=== PATIENT | male | born 1970 | race Caucasian/White ===

== ENCOUNTER 2017-03-03 13:34 | Emergency (ER) | payer SELFPAY ==
--- NOTE | 2017-03-03 13:47 | Emergency Department Record ---
History of Present Illness - General Stated Complaint: SEIZURE Time Seen by Provider: 03/03/17 13:38 Source: Patient, EMS - History of Present Illness Initial Comments: Patient confused at the scene and was diaphoretic and had a fever and in route he had a seizure and EMS gave him valium 5 mg IV. Upon arrival he was answering questions and he denied headache or neck pain and he had no nucal signs. No neck pain. Patient stated he ran out of oxycontin 3 days ago and he is not due for his next script of pain medication for [address] is Dr. Cain and his pain Dr. is Dr. Cleary. Patient states he uses oxycontin 60 mg two times a day and oxy ir 10 mg every 6 hours. MD Complaint: Seizure Onset/Timin -: Hour(s) Duration of Episode: 30 -: Second(s) Witnessed: Yes - by bystander, Yes - by EMS, Yes - by other (he had a second seizure in the ED last 20 seconds and given versed 2.5 mg IV) Seizure History: None, Other Possible Precipitating Event: Medication Associated Symptoms: Diaphoresis, Fever/chills - Related Data Home Medications Medication Instructions Recorded Confirmed Last Taken Aripiprazole [Abilify] 04/03/14 04/03/14 04/02/14 Citalopram Hydrobromide 04/03/14 04/03/14 04/02/14 [Citalopram HBr] Esomeprazole Magnesium [Nexium] 04/03/14 04/03/14 04/02/14 Hydrocodone/Acetaminophen 04/03/14 04/03/14 04/02/14 [Hydrocodon-Acetaminophn 10-325] Meloxicam [Meloxicam] 04/03/14 04/03/14 04/02/14 Olmesartan/Amlodipin/Hcthiazid 04/03/14 04/03/14 04/02/14 [Tribenzor 40-5-12.5 mg Tablet] Ranitidine HCl [Zantac] 04/03/14 04/03/14 04/02/14 Venlafaxine HCl [Effexor Xr] 04/03/14 04/03/14 04/02/14 Allergies Allergy/AdvReac Type Severity Reaction Status Date / Time codeine Allergy VOMITING Verified 04/03/14 03:38 poison luzma extract Allergy HIVES Verified 04/03/14 03:38 [Poison Luzma Extract] Review of Systems ROS unobtainable: Due to mental status Reviewed: No additional complaints except as noted below Constitutional: Reports: As per HPI, Fever, Malaise, Weakness. Denies: Chills, Night sweats, Weight change Eyes: Reports: As per HPI. Denies: Eye discharge, Eye pain, Photophobia, Vision change ENT: Reports: As per HPI. Denies: Congestion, Dental pain, Ear pain, Epistaxis , Hearing loss, Throat pain Respiratory: Reports: As per HPI, Cough. Denies: Dyspnea, Hemoptysis, Stridor, Wheezes Cardiovascular: Reports: As per HPI. Denies: Arrhythmia, Chest pain, Dyspnea on exertion, Edema, Murmurs, Orthopnea, Palpitations, Paroxysmal nocturnal dyspnea, Rheumatic Fever, Syncope Endocrine: Reports: As per HPI. Denies: Fatigue, Heat or cold intolerance, Polydipsia, Polyuria Gastrointestinal: Reports: As per HPI. Denies: Abdominal pain, Constipation, Diarrhea, Hematemesis, Hematochezia, Melena, Nausea, Vomiting Genitourinary: Reports: As per HPI. Denies: Dysuria, Frequency, Hematuria, Incontinence, Retention, Testicular pain, Testicular mass, Urgency Musculoskeletal: Reports: As per HPI, Back pain. Denies: Arthralgia, Gout, Joint swelling, Myalgia, Neck pain Skin: Reports: As per HPI. Denies: Bruising, Change in color, Change in hair/ nails, Lesions, Pruritus, Rash Neurological: Reports: As per HPI, Confusion, Seizure, Weakness. Denies: Abnormal gait, Headache, Numbness, Paresthesias, Tingling, Tremors, Vertigo Psychiatric: Reports: As per HPI. Denies: Anxiety, Auditory hallucinations, Depression, Homicidal thoughts, Suicidal thoughts, Visual hallucinations Hematological/Lymphatic: Reports: As per HPI. Denies: Anemia, Blood Clots, Easy bleeding, Easy bruising, Swollen glands Past Medical History - SOCIAL HISTORY Smoking Status: Never smoker - RESPIRATORY Hx Respiratory Disorders: No - CARDIOVASCULAR Hx Cardio Disorders: Yes Hx Hypertension: Yes - NEURO Hx Neuro Disorders: Yes Hx Neuropathy: Yes - GI Hx GI Disorders: Yes Hx Reflux: Yes Hx Ulcer: Yes - Hx Genitourinary Disorders: No - ENDOCRINE Hx Endocrine Disorders: No - MUSCULOSKELETAL Hx Musculoskeletal Disorders: Yes Hx Arthritis: Yes - PSYCH Hx Psych Problems: No Hx Anxiety: Yes Hx Depression: Yes - HEMATOLOGY/ONCOLOGY Hx Hematology/Oncology Disorders: No Family Medical History Hx Alcohol Use: Father, Brother/Sister, Grandparents Hx Cancer: Brother/Sister, Grandparents Hx Diabetes: Mother Hx Heart Disease: Father, Grandparents Hx HTN: Father, Grandparents Hx Kidney Disease: Grandparents Hx Resp Disorders: Father Physical Exam - General General Appearance: Oriented x3, Cooperative, Mild distress, Moderate distress, Other (diaphoretics) - Head Head exam: Normal inspection - Eye Eye exam: Normal appearance, PERRL Pupils: Normal accommodation - ENT ENT exam: Normal exam, Mucous membranes moist, Normal external ear exam, Normal orophraynx, TM's normal bilaterally Ear exam: Normal external inspection. negative: External canal tenderness Nasal Exam: Normal inspection. negative: Discharge, Sinus tenderness Mouth exam: Normal external inspection, Tongue normal Teeth exam: Normal inspection. negative: Dental caries Throat exam: Normal inspection. negative: Tonsillar erythema, Tonsillar exudate - Neck Neck exam: Normal inspection, Full ROM. negative: Tenderness - Respiratory Respiratory exam: Normal lung sounds bilaterally. negative: Respiratory distress - Cardiovascular Cardiovascular Exam: Regular rate, Normal rhythm, Normal heart sounds - GI/Abdominal GI/Abdominal exam: Soft, Normal bowel sounds. negative: Tenderness - Rectal Rectal exam: Deferred - exam: Deferred - Extremities Extremities exam: Normal inspection, Full ROM, Normal capillary refill. negative: Tenderness - Back Back exam: Reports: Normal inspection, Full ROM. Denies: Muscle spasm, Rash noted, Tenderness - Neurological Neurological exam: Altered, CN II-XII intact, Oriented X3, Reflexes normal - Psychiatric Psychiatric exam: Normal affect, Normal mood - Skin Skin exam: Diaphoretic, Intact, Normal color, Warm Course - Reevaluation(s) Reevaluation #1: updated dr Finn on patient status and his hypotension and need for an ICU bed and he said he would set up an ICU bed. 03/03/17 16:53 Procedures - Lumbar Puncture Consent Obtained: Written consent Time Out Performed: Yes Indication for Procedure: Change in mental status, Fever work up Patient Position: Sitting upright/leaning forward Skin Prep: 0.5% Chlorhexidine/Alcohol, Povidone-Iodine 1% Local Anesthetic Used: Lidocaine 1% Spinal Needle Gauge: 20G Spinal Needle Length: 4in Interspace Used: L3-L4 Fluid Initially Obtained: Bloody, Clear (cleared after a few drops) Complications: None Patient Tolerated Procedure: Good Medical Decision Making - Lab Data Result diagrams: 03/03/17 13:40 03/03/17 13:40 Disposition Clinical Impression: Seizure, Narcotic withdrawal Hypotension Qualifiers: Hypotension type: unspecified hypotension type Qualified Code(s): I95.9 - Hypotension, unspecified Sepsis Qualifiers: Sepsis type: sepsis due to unspecified organism Qualified Code(s): A41.9 - Sepsis, unspecified organism Disposition: Acute Care Hospital Transfer Condition: (3) Guarded Time of Disposition: 17:22
[2017-03-03] MEDS ORDERED: FOSPHENYTOIN SODIUM 500 MG/10 ML IV ONE (13:54)
[2017-03-03] MEDS ORDERED: 0.9 % SODIUM CHLORIDE 1,000 ML BAG IV ONE (13:55)
[2017-03-03 14:00] LABS: HEMOGLOBIN 15.6 gm/dl (14.0-18.0); MEAN CELL VOLUME 89.4 fl (81-97); MEAN CORPUSCULAR HEMOGLOBIN 29.7 pg (27-33); MEAN CORPUSCULAR HGB CONC 33.2 g/dl (32-36); MEAN PLATELET VOLUME 10.8 fl (7.4-10.4); PLATELET COUNT 162 K/uL (130-400); RED BLOOD COUNT 5.26 M/uL (4.40-5.70); RED CELL DISTRIBUTION WIDTH 13.8 % (11.5-14.5); WHITE BLOOD COUNT W/O DIFF 8.4 K/uL (4.2-12.2)
[2017-03-03 14:13] LABS: INR 0.97; PARTIAL THROMBOPLASTIN TIME 26.3 SECONDS (24.5-39.1)
[2017-03-03 14:14] LABS: PLATELET ESTIMATE NORMAL (NORMAL)
[2017-03-03 14:22] LABS: AMMONIA 24.9 umol/L (9-30)
[2017-03-03 14:23] LABS: ALKALINE PHOSPHATASE 333 U/L (38-126); ALT/SGPT 815 U/L (21-72); AST/SGOT 525 U/L (17-59); BLOOD UREA NITROGEN 13 mg/dL (9-20); CREATININE 1.2 mg/dL (0.66-1.25); EST GLOMERULAR FILTRATION RATE > 60 ml/min; GLUCOSE,RANDOM 114 mg/dL (70-110); TOTAL PROTEIN 7.4 gm/dL (6.3-8.2)
[2017-03-03 14:24] LABS: ACETAMINOPHEN < 10.0 ug/mL (10.0-30.0); SALICYLATE < 1.0 mg/dL (2.8-20.0)
[2017-03-03 16:18] LABS: URINE APPEARANCE CLEAR; URINE BILIRUBIN SMALL (NEGATIVE); URINE COLOR ORANGE; URINE GLUCOSE (UA) NEGATIVE (NEGATIVE); URINE KETONE NEGATIVE (NEGATIVE); URINE LEUKOCYTE ESTERASE NEGATIVE (NEGATIVE); URINE NITRITE NEGATIVE (NEGATIVE)
[2017-03-03 16:25] LABS: URINE BLOOD MODERATE (NEGATIVE); URINE EPITHELIAL CELLS NONE SEEN (FEW); URINE RBC RARE (NONE SEEN); URINE WBC NONE SEEN (0-2/hpf)
[2017-03-03 16:26] LABS: URINE AMORPHOUS SEDIMENT 1+; URINE BACTERIA NONE SEEN
[2017-03-03] MEDS ORDERED: CEFTRIAXONE SODIUM 2 GM in 0.9 % SODIUM CHLORIDE 100ML 100 ML IVPB ONE (16:52)
[2017-03-03] MEDS ORDERED: VANCOMYCIN HCL 1,000 MG in 0.9 % SODIUM CHLORIDE 250ML 250 ML IVPB ONE (16:52)
[2017-03-03] MEDS ORDERED: MIDAZOLAM HCL 2MG/2ML VIAL IV ONE (16:53)
[2017-03-03] MEDS ORDERED: MIDAZOLAM HCL 2MG/2ML VIAL ONE (16:54)
[2017-03-03] MEDS ORDERED: ONDANSETRON HCL IV 4 MG/2 ML VIAL IVP ONE (16:54)
[2017-03-03] MEDS ORDERED: DOPAMINE HCL IV SCH ×2 (17:00)
[2017-03-03] MEDS ORDERED: DEXTROSE 5% IV SCH ×2 (17:00)
[2017-03-03] MEDS ORDERED: D5W IV SCH ×2 (17:00)
[2017-03-03] MEDS ORDERED: WATER IV SCH ×2 (17:00)
[2017-03-03 17:07] LABS: CSF APPEARANCE CLEAR; CSF COLOR COLORLESS; CSF RBC 1 /mm3; CSF WBC 0 /uL
[2017-03-03 17:10] LABS: SPECIMEN SOURCE CSF
[2017-03-03 17:44] LABS: AMPHETAMINE SCREEN URINE NOT DETECTED; BARBITURATE SCREEN URINE DETECTED; BENZODIAZEPINE SCREEN URINE NOT DETECTED; COCAINE SCREEN URINE NOT DETECTED; METHADONE SCREEN URINE NOT DETECTED; METHAMPHETAMINE SCREEN NOT DETECTED; OPIATE SCREEN URINE DETECTED; OXYCODONE SCREEN URINE NOT DETECTED; PHENCYCLIDINE SCREEN URINE NOT DETECTED; PROPOXYPHENE SCREEN URINE NOT DETECTED; THC SCREEN URINE DETECTED; TRICYCLIC ANTIDEPRESSANT SCRN NOT DETECTED
== END 2017-03-03 18:20 | disposition short-term general hospital (02) ==
LOC: ER 13:34
DX: A41.9 Sepsis, unspecified organism (principal); I95.2 Hypotension due to drugs; R50.9 Fever, unspecified; R51 Headache; R61 Generalized hyperhidrosis; F11.23 Opioid dependence with withdrawal; R56.9 Unspecified convulsions; T40.2X5A Adverse effect of other opioids, initial encounter; I10 Essential (primary) hypertension; G62.9 Polyneuropathy, unspecified; Z79.899 Other long term (current) drug therapy
CPT/HCPCS: 99285 ×2; 96365; 96366; 96375; 96361; 96368; 62270; 84157; 82550; 82140; 85730; 85610; 80076; 80048; 81001; 87205; 89051; 82945; 80305; 85027; 71010; G0480 ×3; J2405; J3370; Q2009; 80320; 80329; J7030; J7050